=== PATIENT | female | born 1950 ===

== ENCOUNTER 2017-03-14 14:30 | Emergency (ER) | payer MEDICARE ==
[2017-03-14 14:46] VITALS: PULSE 70; RESP 20
[2017-03-14] MEDS ORDERED: Sodium Chloride 0.9% 1,000 ML IV ONE (15:10)
[2017-03-14] MEDS ORDERED: Sodium Chloride 0.9% 1,000 ML ONE (15:29)
[2017-03-14 15:33] LABS: BASO % 0.5 % (0.0-2.0); EOS # 0.1 K/uL (0.0-0.7); EOS % 0.8 % (0.0-4.0); HEMATOCRIT 42.5 % (34.0-47.0); LYMPH # 1.9 K/uL (1.0-4.3); LYMPH % 25.8 % (20.0-40.0); MEAN CELL VOLUME 86.4 fL (81.0-99.0); MEAN CORPUSCULAR HEMOGLOBIN 29.1 pg (27.0-31.0); MEAN CORPUSCULAR HGB CONC 33.7 g/dL (33.0-37.0); MEAN PLATELET VOLUME 8.8 fL (7.2-11.7); MONO # 0.5 K/uL (0.0-0.8); MONO % 7.4 % (0.0-10.0); NRBC % 0.3 % (0.0-2.0); RED CELL DISTRIBUTION WIDTH 15.1 % (11.5-14.5); WHITE BLOOD COUNT 7.4 K/uL (4.8-10.8)
[2017-03-14 15:37] LABS: CHLORIDE 104 mmol/L (98-107)
--- NOTE | 2017-03-14 15:37 | C.PDOC ---
History Of Present Illness 66 y/o female presents to ED for evaluation of upper abdominal pain associated with nausea, and lightheadedness after eating watermelon at 4:00 this morning. Pt states that she did not eat anything last night ad was hungry in morning. pt then had 2 episodes of diarrhea and felt lightheaded. Notes she continued to have her symptoms after waking up again at 8:00. Otherwise, denies any fever , chills, vomiting, dysuria, hematuria, chest pain, shortness of breath, or any other associated symptoms at this time. Time Seen by Provider: 03/14/17 15:05 Chief Complaint (Nursing): Abdominal Pain History Per: Patient History/Exam Limitations: no limitations Onset/Duration Of Symptoms: Hrs Current Symptoms Are (Timing): Still Present Severity: Mild Radiation Of Pain To:: None Quality Of Discomfort: "Pain" Associated Symptoms: Nausea, Diarrhea. denies: Chest Pain, Urinary Symptoms Exacerbating Factors: None Alleviating Factors: None Recent travel outside of the [place]: No Additional History Per: Patient Abnormal Vaginal Bleeding: No Past Medical History Reviewed: Historical Data, Nursing Documentation, Vital Signs Vital Signs: Last Vital Signs Temp 98.1 F 03/14/17 17:22 Pulse 70 03/14/17 17:22 Resp 20 03/14/17 17:22 BP 135/79 03/14/17 17:22 Pulse Ox 98 03/14/17 17:28 - Medical History PMH: HTN Family History: States: Unknown Family Hx - Social History Hx Alcohol Use: No Hx Substance Use: No - Immunization History Hx Tetanus Toxoid Vaccination: No Hx Influenza Vaccination: No Hx Pneumococcal Vaccination: No Review Of Systems Constitutional: Negative for: Fever, Chills Cardiovascular: Positive for: Light Headedness. Negative for: Chest Pain, Palpitations Respiratory: Negative for: Shortness of Breath Gastrointestinal: Positive for: Nausea, Abdominal Pain, Diarrhea. Negative for : Vomiting, Constipation, Melena, Hematochezia Genitourinary: Negative for: Dysuria, Frequency, Incontinence, Hematuria, Vaginal Discharge, Vaginal Bleeding Musculoskeletal: Negative for: Back Pain Physical Exam - Physical Exam Appears: Non-toxic, No Acute Distress Skin: Normal Color, Warm, Dry, No Rash Head: Atraumatic, Normacephalic Eye(s): bilateral: Normal Inspection Oral Mucosa: Moist Neck: Normal ROM, Supple Cardiovascular: Rhythm Regular, No Murmur Respiratory: Normal Breath Sounds, No Rales, No Rhonchi, No Wheezing Gastrointestinal/Abdominal: Normal Exam, Bowel Sounds, Soft, No Tenderness, No Guarding, No Rebound Back: Normal Inspection, No CVA Tenderness Extremity: Bilateral: Atraumatic, Normal ROM Neurological/Psych: Oriented x3, Normal Speech, Normal Cognition ED Course And Treatment - Laboratory Results Result Diagrams: 03/14/17 15:26 03/14/17 15:26 ECG: Interpreted By Me, Viewed By Me ECG Rhythm: Sinus Rhythm ECG Interpretation: Abnormal Interpretation Of ECG: Possible left atrial enlargement. Left axis deviation. Left ventricular hypertrophy. Rate From EC (bpm) O2 Sat by Pulse Oximetry: 98 (on RA) Pulse Ox Interpretation: Normal Medical Decision Making Medical Decision Making: EKG, blood work, UA ordered and reviewed. Pt was given Zofran, Pepcid, and IV fluids. 526 pm On reassessment, abdomen remains soft and non-tender. No acute distress. pt reports feeling much better, will d/c home with pepcid and pnd f/u in 1-2 days. . Disposition Counseled Patient/Family Regarding: Studies Performed, Diagnosis, Need For Followup, Rx Given - Disposition Disposition: HOME/ ROUTINE Disposition Time: 17:41 Condition: IMPROVED Additional Instructions: Seguimiento con alcantara mdico en 1-2 stewart. Coma alimentos suaves en pequeas cantidades a la vez; Evitar las frutas y verduras moy unos stewart., Seth banano, arroz, compota de manzana, y beber lquidos aumentados. Vuelva a ER para cualquier peor sntoma. Auxvasse Pepcid segn lo prescrito. 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 - Scribe Statement The provider has reviewed the documentation as recorded by the Scribe Chata Montemayor All medical record entries made by the Scribe were at my direction and personally dictated by me. I have reviewed the chart and agree that the record accurately reflects my personal performance of the history, physical exam, medical decision making, and the department course for this patient. I have also personally directed, reviewed, and agree with the discharge instructions and disposition.
[2017-03-14 15:38] LABS: POTASSIUM 4.4 mmol/L (3.6-5.2); SODIUM 141 mmol/L (132-148)
[2017-03-14 15:40] LABS: ALKALINE PHOSPHATASE 89 U/L (38-126); ALT/SGPT 38 U/L (9-52); AST/SGOT 26 U/L (14-36); BILIRUBIN,TOTAL 0.5 mg/dL (0.2-1.3); BLOOD UREA NITROGEN 13 mg/dL (7-17); CARBON DIOXIDE 25 mmol/L (22-30); GFR AFRICAN-AMERICAN > 60; GLUCOSE,RANDOM 114 mg/dL (65-105); TOTAL PROTEIN 7.9 g/dL (6.3-8.3)
[2017-03-14 15:41] LABS: CALCIUM 9.1 mg/dl (8.6-10.4)
[2017-03-14 16:14] LABS: RBC URINE 8 /hpf (0-3); URINE BILIRUBIN NEGATIVE (NEGATIVE); URINE BLOOD 1+ (NEGATIVE); URINE COLOR Straw (YELLOW); URINE GLUCOSE (UA) NORMAL (Normal); URINE KETONE NEGATIVE (NEGATIVE); URINE LEUKOCYTE ESTERASE NEG Leu/uL (Negative); URINE PROTEIN NEGATIVE (NEGATIVE); URINE UROBILINOGEN NORMAL mg/dL (0.2-1.0)
[2017-03-14 16:15] LABS: URINE BACTERIA RARE (<OCC); WBC URINE 1 /hpf (0-5)
[2017-03-14 17:22] VITALS: BP 135/79; TEMP 98.1
[2017-03-14 17:28] VITALS: O2SAT 98
--- NOTE | 2017-03-15 20:26 | CARD ---
APPROVED REPORT EKG Measurement Heart [id number] <Conclusion> Normal sinus rhythm Possible Left atrial enlargement Left axis deviation Left ventricular hypertrophy Lateral infarct, age undetermined Abnormal ECG
== END 2017-03-14 17:55 | disposition home or self-care (01) ==
LOC: C.ER 14:30
DX: K52.9 Noninfective gastroenteritis and colitis, unspecified (principal)
CPT/HCPCS: 80053; 81001; 83690; 84484; 85025; 93005; 96374; 96375; 99284; J2405; J7040